=== PATIENT | male | born 1980 | race Caucasian/White ===

== ENCOUNTER 2021-08-11 18:58 | Emergency (ER) | payer BC ==
[~2021-08-11] VITALS: Ht 188 cm; Wt 71.3 kg
[2021-08-11 19:09] VITALS: BP 133/87
--- NOTE | 2021-08-11 19:22 | PHYS DOC ---
Past History Past Surgical History: Other Additional Past Surgical Histo: wisdom teeth Alcohol Use: None Adult General Chief Complaint Chief Complaint: BLOODY STOOL HPI HPI Patient is a 40-year-old male with a past medical history of asthma and recent intermittent bloody stools over the last couple of months who presents for bright red blood in the stool today. States that he has an appointment next week for colonoscopy set up by his primary care physician due to some family hi story of colon cancer. States he does have an internal hemorrhoid as well. Denies any recent traumas, travels, illnesses, fevers, headache, lightheadedness, numbness/weakness/tingling, chest pain, shortness of breath, nausea, vomiting, diarrhea. Denies any hematuria or dysuria. Denies problems with bleeding over his life. Denies any known family history of bleeding disorders. States he is eating and drinking normally. Review of Systems Review of Systems Review of systems otherwise unremarkable except noted in HPI Allergies Allergies Allergies Coded Allergies Type Severity Reaction Last Updated Verified Penicillins Allergy Unknown 08/11/21 Yes acetaminophen Allergy Unknown 08/11/21 Yes oxycodone Allergy Unknown 08/11/21 Yes Physical Exam Physical Exam Constitutional: Well developed, well nourished, no acute distress, non-toxic appearance. [] HENT: Normocephalic, atraumatic, bilateral external ears normal, oropharynx moist, no oral exudates, nose normal. [] Eyes: conjunctiva normal, no discharge. [] Neck: Normal range of motion, no tenderness, supple, no stridor. [] Cardiovascular:Heart rate regular rhythm, no murmur [] Lungs & Thorax: Bilateral breath sounds clear to auscultation [] Abdomen: soft, no tenderness, no masses, no pulsatile masses. Rectal: No gross blood noted external hemorrhoid [] Skin: Warm, dry, no erythema, no rash. [] Back: No tenderness, no CVA tenderness. [] Extremities: No tenderness, no cyanosis, no clubbing, ROM intact, no edema. [] Neurologic: Alert and oriented X 3, normal motor function, normal sensory function, no focal deficits noted. [] Psychologic: Affect normal, judgement normal, mood normal. [] Current Patient Data Vital Signs Vital Signs Date Time Temp Pulse Resp B/P (MAP) Pulse Ox O2 Delivery O2 Flow Rate FiO2 08/11/21 19:09 98.0 98 18 133/87 (102) 99 Room Air EKG EKG [] Radiology/Procedures Radiology/Procedures [] Heart Score C/O Chest Pain: No Risk Factors: Risk Factors: DM, Current or recent (<one month) smoker, HTN, HLP, family history of CAD, obesity. Risk Scores: Risk Factors: DM, Current or recent (<one month) smoker, HTN, HLP, family history of CAD, obesity. Course & Med Decision Making Course & Med Decision Making Patient is a 40-year-old male who presents with a chief complaint of bright red blood in the stool Vital signs not concerning. Physical exam noted above. Patient denied need for pain or nausea medicine Laboratory analysis including hemoglobin nonconcerning. CT with no acute findings. Patient completely asymptomatic. Discussed all findings with patient. Patient felt safe to discharge home. Advised follow-up on Sunday with primary care physician and GI doctor. Gave return precautions to the ED. Patient grateful, verbalized understanding and agreed with plan of discharge. [] Dragon Disclaimer Dragon Disclaimer This electronic medical record was generated, in whole or in part, using a voice recognition dictation system. Departure Departure: Impression: Primary Impression: Bright red rectal bleeding Disposition: HOME / SELF CARE / HOMELESS Condition: STABLE Referrals: PCP,NO (PCP) LA KAUR MD Patient Instructions: Bloody Stools Additional Instructions: Thank you for coming into the emergency department tonight and allowing us to take care of you. Please read the attached information carefully to go over things we discussed. Your hemoglobin today was normal. The CT scan of your abdomen was not concerning. Please be sure to to follow the recommendations for hemorrhoids as well including lots of fluid intake and stool softeners. Please be sure to keep your upcoming appointment next week for your colonoscopy. Please call both your primary care physician and your GI doctor that can add to your colonoscopy next week to discuss your ED visit and see if they would like you to come in sooner or for reevaluation. Please come back to the emergency department with new or concerning symptoms as we discussed. EMILY GOLD MD Aug 11, 2021 19:22
[2021-08-11 19:50] LABS: BASO # 0.1 x10^3/uL (0.0-0.2); BASO % 1 % (0-3); EOS # 0.2 x10^3/uL (0.0-0.7); EOS % 2 % (0-3); HEMATOCRIT 42.2 % (39.0-53.0); HEMOGLOBIN 14.5 g/dL (13.0-17.5); LYMPH # 1.8 x10^3/uL (1.0-4.8); LYMPH % 19 % (24-48); MEAN CORPUSCULAR HEMOGLOBIN 32 pg (25-35); MEAN CORPUSCULAR HGB CONC 34 g/dL (31-37); MEAN CORPUSCULAR VOLUME 93 fL (79-100); MONO # 0.8 x10^3/uL (0.0-1.1); MONO % 8 % (0-9); NEUT # 6.7 x10^3uL (1.8-7.7); NEUT % 71 % (31-73); PLATELET COUNT 210 x10^3/uL (140-400); RED BLOOD COUNT 4.54 x10^6/uL (4.30-5.70); RED CELL DISTRIBUTION WIDTH 13.6 % (11.5-14.5); WHITE BLOOD COUNT 9.5 x10^3/uL (4.0-11.0)
[2021-08-11 19:53] LABS: CALCIUM 9.1 mg/dL (8.5-10.1); CREATININE 1.1 mg/dL (0.7-1.3); GFR 74.9; POTASSIUM 3.3 mmol/L (3.5-5.1)
--- NOTE | 2021-08-11 19:56 | RAD ---
CT ABDOMEN+PELVIS WO History: Reason: LLQ, blood in stool / Spl. Instructions: / History: Technique: Noncontrast examination of the abdomen and pelvis. Coronal and sagittal reconstructions we re performed. Exposure: One or more of the following individualized dose reduction techniques were utilized for thi s examination: 1. Automated exposure control 2. Adjustment of the mA and/or kV according to patient size 3. Use of iterative reconstruction technique. Comparison: July 08, 2021 Findings: Lower chest: No consolidation or pleural effusion. Abdomen and pelvis: The liver, spleen, adrenal glands, and pancreas are unremarkable. Contracted gall bladder. Punctate nonobstructing right intrarenal calculus. No hydronephrosis. Decompressed urinary bladder. Resolved previously seen distal ileal and colonic wall thickening. Normal appendix. No evidence of lili wel obstruction. No pathologic lymphadenopathy. No ascites. Bones: No pathologic osseous lesions. Impression: 1. No acute abdominal or pelvic pathology. 2. Punctate nonobstructing right intrarenal calculus. Electronically signed by: Valdo De Jesus DO (08/11/2021 7:54 PM) [facility]
== END 2021-08-11 20:07 | disposition home or self-care (01) ==
LOC: ER 18:58
DX: K62.5 Hemorrhage of anus and rectum (principal); J45.909 Unspecified asthma, uncomplicated; Z88.0 Allergy status to penicillin; Z88.5 Allergy status to narcotic agent; Z88.8 Allergy status to other drugs, medicaments and biological substances
CPT/HCPCS: 36415; 74176; 80048; 85025; 99284